=== PATIENT | male | born 1980 | race Caucasian/White ===

== ENCOUNTER 2020-02-13 15:29 | Inpatient (IN) | payer BC ==
[2020-02-13] MEDS ORDERED: ONDANSETRON HCL INJ/PF 4 MG/2 ML SDV IV ONE ×2 (15:52→19:54)
[2020-02-13] MEDS ORDERED: NORMAL SALINE 1000 ML 1,000 ML IV ONE ×2 (15:53→19:31)
--- NOTE | 2020-02-13 15:55 | ER Document Report ---
ED Medical Screen (RME) - General Chief Complaint: Abdominal Pain Stated Complaint: ABDOMINAL PAIN,CAN'T URINATE Time Seen by Provider: 02/13/20 15:50 Primary Care Provider: ROMY KOROMA MD [Primary Care Provider] - Follow up as needed - [facility] Notes: 02/13/20 15:53 39-year-old male to the emergency department with complaints of epigastric abdominal pain with nausea and vomiting that began last night is gotten significantly worse today. Abdominal pain radiates through to his back. He states that he has a history of pancreatitis and the last time he had it was about 8 years ago. He used to be a heavy drinker and had been sober until last April. Since April he has been drinking almost a pint a day. In April he unfortunately found his father . He states he stopped drinking about 2 days ago and was surprised to have his pain start yesterday. He denies any tremors or seizures. He is gone through alcohol withdrawal before but has never had a seizure with it. Denies any fevers but admits to chills. I performed a brief medical screening exam on the patient determined that the patient needs further evaluation and management by main side provider. I have placed initial orders to help expedite care. - Related Data Allergies/Adverse Reactions: hydromorphone HCl [From Dilaudid] Allergy (Severe, Verified 04/26/12 09:35) Hallucinations iodine [Iodine] Allergy (Severe, Verified 04/26/12 09:35) Hives Home Medications: BP meds Past Medical History - Social History Frequency of alcohol use: Heavy Drug Abuse: None - Past Medical History Cardiac Medical History: Denies: Hx Coronary Artery Disease, Hx Heart Attack, Hx Hypertension Pulmonary Medical History: Reports: Hx Pneumonia Denies: Hx Asthma, Hx Bronchitis, Hx COPD, Hx Tuberculosis Neurological Medical History: Denies: Hx Cerebrovascular Accident, Hx Seizures GI Medical History: Reports: Hx Pancreatitis Musculoskeltal Medical History: Denies Hx Arthritis Past Surgical History: Reports: Hx Herniorrhaphy. Denies: Hx Pacemaker - Immunizations Hx Diphtheria, Pertussis, Tetanus Vaccination: Yes Physical Exam - Vital signs Vitals: Temp Pulse Resp BP Pulse Ox 97.9 F 107 H 20 199/114 H 100 02/13/20 15:33 02/13/20 15:33 02/13/20 15:33 02/13/20 15:33 02/13/20 15:33 Course - Vital Signs Vital signs: Temp Pulse Resp BP Pulse Ox 97.9 F 107 H 20 199/114 H 100 02/13/20 15:33 02/13/20 15:33 02/13/20 15:33 02/13/20 15:33 02/13/20 15:33 Doctor's Discharge - Discharge Referrals: ROMY KOROMA MD [Primary Care Provider] - Follow up as needed
[2020-02-13 16:20] LABS: APPEARANCE,URINE CLEAR; BILIRUBIN,URINE NEGATIVE (NEGATIVE); COLOR,URINE YELLOW; GLUCOSE, URINE >=500 mg/dL (NEGATIVE); KETONES,URINE 80 mg/dL (NEGATIVE); LEUKOCYTE ESTERASE,URINE NEGATIVE (NEGATIVE); NITRITE,URINE NEGATIVE (NEGATIVE); PROTEIN,URINE 100 mg/dL (NEGATIVE); URINE SPECIFIC GRAVITY 1.048; UROBILINOGEN,URINE NEGATIVE mg/dL (<2.0)
[2020-02-13] MEDS ORDERED: MORPHINE SULFATE 10 MG/ML INJ IV ONE ×2 (16:28→19:55)
--- NOTE | 2020-02-13 16:29 | ER Document Report ---
ED General - General Chief Complaint: Abdominal Pain Stated Complaint: ABDOMINAL PAIN,CAN'T URINATE Time Seen by Provider: 02/13/20 15:50 Notes: 39-year-old male alcoholic presents with upper abdominal pain nausea vomiting for about 18 hours. History of pancreatitis and thinks it is the same. No fever chills. Pain is epigastric nonradiating associated with position changes associated with anorexia and vomiting. No anxiety withdrawal or seizure. History of ICU admission for what sounds like delirium which he says is due to Dilaudid. No diarrhea decreased urine output decreased oral intake. - Related Data Allergies/Adverse Reactions: hydromorphone HCl [From Dilaudid] Allergy (Severe, Verified 04/26/12 09:35) Hallucinations iodine [Iodine] Allergy (Severe, Verified 04/26/12 09:35) Hives Home Medications: BP meds Past Medical History - General Information source: Patient - Social History Smoking Status: Never Smoker Frequency of alcohol use: Heavy Drug Abuse: None Family History: None - Past Medical History Cardiac Medical History: Denies: Hx Coronary Artery Disease, Hx Heart Attack, Hx Hypertension Pulmonary Medical History: Reports: Hx Pneumonia Denies: Hx Asthma, Hx Bronchitis, Hx COPD, Hx Tuberculosis Neurological Medical History: Denies: Hx Cerebrovascular Accident, Hx Seizures GI Medical History: Reports: Hx Pancreatitis Musculoskeletal Medical History: Denies Hx Arthritis Past Surgical History: Reports: Hx Herniorrhaphy. Denies: Hx Pacemaker - Immunizations Hx Diphtheria, Pertussis, Tetanus Vaccination: Yes Review of Systems - Review of Systems Notes: REVIEW OF SYSTEMS GEN: Denies fever, chills, weight loss ENT: Denies sore throat, nasal discharge, ear pain EYES: Denies blurry vision, eye pain, discharge CV: Denies chest pain, palpitations, edema RESP: Denies cough, shortness of breath, wheezing GI: See HPI MSK: Denies joint pain/swelling, edema, SKIN: Denies rash, skin lesions LYMPH: Denies swollen glands/lymph nodes NEURO: Denies headache, focal weakness or numbness, dizziness PSYCH: Denies depression, suicidal or homicidal ideation PHYSICAL EXAMINATION General: No acute distress, well-nourished Head: Atraumatic, normocephalic ENT: Mouth normal, oropharynx moist, no exudates or tonsillar enlargement Eyes: Conjunctiva normal, pupils equal, lids normal Neck: No JVD, supple, no guarding CVS: Normal rate, regular rhythm, no murmurs Resp: No resp distress, equal and normal breath sounds bilaterally GI: Abdominal tenderness without rebound or guarding Ext: No deformities, no edema, normal range of motion in upper and lower ext Back: No CVA or midline TTP Skin: No rash, warm Lymphatic: No lymphadeopathy noted Neuro: Tremor Physical Exam - Vital signs Vitals: Temp Pulse Resp BP Pulse Ox 97.9 F 107 H 20 199/114 H 100 02/13/20 15:33 02/13/20 15:33 02/13/20 15:33 02/13/20 15:33 02/13/20 15:33 Course - Re-evaluation Re-evalutation: 02/13/20 23:08 Abdominal pain history pancreatitis and alcoholism Mild withdrawal versus pain Not likely gallstone related. Labs show elevated lipase isolated, hemoconc entration with elevated hemoglobin Given 2 L of fluid 2 rounds of large dose morphine and still miserable Discussed with Edna for admission. Doubt gallstone pancreatitis. - Vital Signs Vital signs: Temp Pulse Resp BP Pulse Ox 98.4 F 94 26 H 188/108 H 100 02/13/20 20:07 02/13/20 20:07 02/13/20 20:07 02/13/20 20:07 02/13/20 20:07 - Laboratory Result Diagrams: 02/13/20 17:22 02/13/20 17:22 Laboratory results interpreted by me: 02/13/20 02/13/20 02/13/20 16:00 17:22 17:22 RBC 5.72 H Hgb 18.9 H Hct 53.9 H Lymph % (Auto) 5.4 L Absolute Neuts (auto) 8.8 H Seg Neutrophils % 86.1 H Potassium 5.5 H Chloride 95 L Glucose 201 H Calcium 11.3 H Total Bilirubin 1.6 H ALT 110 H Lipase 4365.8 H Urine Protein 100 H Urine Glucose (UA) >=500 H Urine Ketones 80 H Discharge - Discharge Clinical Impression: Acute pancreatitis Qualifiers: Pancreatitis type: alcohol induced Acute pancreatitis complication: unspecified Qualified Code(s): K85.20 - Alcohol induced acute pancreatitis without necrosis or infection Condition: Good Disposition: ADMITTED INPATIENT Admitting Provider: Leanna (Hospitalist) Unit Admitted: Medical Floor
[2020-02-13 17:40] LABS: ABSOLUTE LYMPHOCYTES (AUTO) 0.5 10^3/uL (0.5-4.7); ABSOLUTE MONOCYTES (AUTO) 0.8 10^3/uL (0.1-1.4); ABSOLUTE NEUT (AUTO) 8.8 10^3/uL (1.7-8.2); BASOPHILS % (AUTO) 0.2 % (0-2); EOSINOPHILS % (AUTO) 0.1 % (0-6); HEMATOCRIT 53.9 % (37.9-51.0); HEMOGLOBIN 18.9 g/dL (13.5-17.0); LYMPHOCYTES % (AUTO) 5.4 % (13-45); MEAN CORPUSCULAR VOLUME 94 fl (80-97); MONOCYTES % (AUTO) 8.2 % (3-13); PLATELET COUNT 207 10^3/uL (150-450); RED BLOOD COUNT 5.72 10^6/uL (4.35-5.55); RED CELL DISTRIBUTION WIDTH 13.7 % (11.5-14.0); SEGMENTED NEUTROPHILS % (AUTO) 86.1 % (42-78); TOTAL CELLS COUNTED % (AUTO) 100 %; WHITE BLOOD COUNT 10.2 10^3/uL (4.0-10.5)
[2020-02-13 18:12] LABS: ALBUMIN 4.8 g/dL (3.5-5.0); ALKALINE PHOSPHATASE 85 U/L (38-126); ANION GAP 17 (5-19); ASPARTATE AMINO TRANSFERASE 50 U/L (17-59); BILIRUBIN,DIRECT 0.4 mg/dL (0.0-0.4); BILIRUBIN,TOTAL 1.6 mg/dL (0.2-1.3); BLOOD UREA NITROGEN 14 mg/dL (7-20); CALCIUM 11.3 mg/dL (8.4-10.2); CARBON DIOXIDE 25 mmol/L (22-30); CHLORIDE 95 mmol/L (98-107); GLUCOSE 201 mg/dL (75-110); POTASSIUM 5.5 mmol/L (3.6-5.0)
[2020-02-13] MEDS ORDERED: ONDANSETRON HCL INJ/PF 4 MG/2 ML SDV IV PRN (20:18)
[2020-02-13] MEDS ORDERED: MAG HYDROX/AL HYDROX/SIMETH SUSP 30 ML UDCUP PO PRN (20:18)
[2020-02-13] MEDS ORDERED: MAGNESIUM HYDROXIDE SUSP 30 ML UDCUP PO PRN (20:18)
[2020-02-13] MEDS ORDERED: HYDRALAZINE HCL INJ/PF 20 MG/1 ML SDV IV PRN (20:24)
[2020-02-13] MEDS ORDERED: MORPHINE SULFATE 10 MG/ML INJ IV PRN ×3 (20:24→20:47)
[2020-02-13] MEDS ORDERED: ACETAMINOPHEN 650 MG SUPP.RECT PR PRN (20:24)
[2020-02-13] MEDS ORDERED: METOPROLOL TARTRATE PF/INJ 5 MG/5 ML SDV IV PRN (20:24)
[2020-02-13] MEDS ORDERED: PROMETHAZINE HCL INJ 25 MG/1 ML VIAL IV PRN (20:24)
[2020-02-13] MEDS ORDERED: DIAZEPAM INJ 10 MG/2 ML DISP.SYRIN IV PRN (20:24)
[2020-02-13] MEDS ORDERED: LORAZEPAM INJ 2 MG/1 ML VIAL IV PRN (20:24)
[2020-02-13] MEDS ORDERED: DEXTROSE 40% GEL 15 GM TUBE PO PRN ×2 (20:28)
[2020-02-13] MEDS ORDERED: GLUCAGON,HUMAN RECOMB 1 MG INJ IM PRN (20:28)
[2020-02-13] MEDS ORDERED: DEXTROSE 50%-WATER 25 GM/50 ML DISP.SYRIN IV PRN ×2 (20:28)
--- NOTE | 2020-02-13 21:17 | PDOC H&P ---
History of Present Illness Admission Date/PCP: 02/13/2020 19:52 ROMY KOROMA MD Patient complains of: Abdominal pain History of Present Illness: ROMY DIANA is a 39 year old male who presented to the emergency room with a 1 day history of abdominal pain. He admits the sudden onset and gradual worsening of constant epigastric gripping abdominal pain with radiation through to his back over the course of the last 24 hours. His pain is now severe and is similar to pain he has had in the past with episodes of alcoholic pancreatitis. His pain has been accompanied by nausea with vomiting and anorexia. His pain has been associated with decreased urine output and intermittent chills without fever. He admits drinking 1 pint of hard liquor per day, for the last 9 months, up until 02/10/2020. He denies identification of any aggravating or ameliorating factors for his abdominal pain. In the emergency room he was found to have an elevated serum lipase, an elevated glucose and poorly controlled hypertension. He was treated in the emergency room with morphine, IV fluids and subsequently was admitted to the hospital for further evaluation and treatment. Past Medical History Cardiac Medical History: Denies: Coronary Artery Disease, Myocardial Infarction, Hypertension Pulmonary Medical History: Reports: Pneumonia Denies: Asthma, Bronchitis, Chronic Obstructive Pulmonary Disease (COPD), Tuberculosis EENT Medical History: Denies: Cataracts, Ears - Hearing aids Neurological Medical History: Denies: Hemorrhagic CVA, Ischemic CVA, Seizures Endocrine Medical History: Reports: Diabetes Mellitus Type 2 Denies: Diabetes Mellitus Type 1, Hyperthyroidism, Hypothyroidism Renal/ Medical History: Denies: Chronic Kidney Disease, Nephrolithiasis Malignancy Medical History: Reports: None GI Medical History: Reports: Other - Alcoholic pancreatitis Denies: Cirrhosis, Hepatitis, Peptic Ulcer Disease Musculoskeltal Medical History: Reports: Arthritis - Tennis elbow Denies: Gout Skin Medical History: Denies: Eczema, Psoriasis Psychiatric Medical History: Reports: Alcohol Dependency Denies: Substance Abuse, Tobacco Dependency Traumatic Medical History: Reports: None Hematology: Denies: Anemia, Bleeding Tendencies Infectious Medical History: Reports: None Past Surgical History Past Surgical History: Reports: Herniorrhaphy Social History Information Source: Patient Lives with: Spouse/Significant other Smoking Status: Never Smoker Electronic Cigarette use?: No Frequency of Alcohol Use: Heavy - 1 pint of hard liquor per day Hx Recreational Drug Use: No Drugs: None Hx Prescription Drug Abuse: No - Advance Directive Resuscitation Status: Full Code Surrogate healthcare decision maker:: Betsy Diana Family History Family History: CAD - Congestive heart failure, Malignancy, Other - Myasthenia gravis Parental Family History Reviewed: Yes Children Family History Reviewed: No Sibling(s) Family History Reviewed.: Yes Medication/Allergy Home Medications: No Home Medications 1 12/24/11 Oxycodone HCl/Acetaminophen [Percocet 5-325 mg Tablet] 1 - 2 tab PO ASDIR PRN 05/03/12 Promethazine HCl [Phenergan 25 mg Tablet] 25 mg PO 05/03/12 Allergies/Adverse Reactions: hydromorphone HCl [From Dilaudid] Allergy (Severe, Verified 04/26/12 09:35) Hallucinations iodine [Iodine] Allergy (Severe, Verified 04/26/12 09:35) Hives Review of Systems Constitutional: PRESENT: as per HPI, anorexia, chills. ABSENT: fever(s) Eyes: ABSENT: visual disturbances, other - Eye pain Ears: ABSENT: hearing changes, other - Ear pain Nose, Mouth, and Throat: ABSENT: headache(s), sore throat Cardiovascular: ABSENT: chest pain, palpitations Respiratory: ABSENT: cough, dyspnea Gastrointestinal: PRESENT: as per HPI, abdominal pain, nausea, vomiting. ABSENT: constipation, diarrhea, hematemesis Genitourinary: PRESENT: as per HPI, other - Decreased urine output. ABSENT: dysuria, hematuria Musculoskeletal: ABSENT: joint swelling, muscle weakness Integumentary: ABSENT: pruritus, rash Neurological: ABSENT: confusion, convulsions, focal weakness, memory loss, syncope, tremor(s) Psychiatric: ABSENT: anxiety, depression Endocrine: ABSENT: cold intolerance, heat intolerance Hematologic/Lymphatic: ABSENT: easy bleeding, easy bruising Allergic/Immunologic: ABSENT: seasonal rhinorrhea Physical Exam Vital Signs: Temp Pulse Resp BP Pulse Ox 97.9 F 107 H 20 199/114 H 100 02/13/20 15:33 02/13/20 15:33 02/13/20 15:33 02/13/20 15:33 02/13/20 15:33 Intake & Output 02/11/20 02/12/20 02/13/20 23:59 23:59 23:59 Intake Total 1000 Balance 1000 Weight 97.9 kg General appearance: PRESENT: cooperative, severe distress - Secondary to abdominal pain Head exam: PRESENT: atraumatic, normocephalic Eye exam: PRESENT: conjunctiva pink. ABSENT: conjunctival injection, scleral icterus Ear exam: PRESENT: normal external ear exam. ABSENT: bleeding, drainage Mouth exam: PRESENT: dry mucosa, neck supple Neck exam: ABSENT: thyromegaly, tracheal deviation Respiratory exam: PRESENT: clear to auscultation rachel, symmetrical, unlabored Cardiovascular exam: PRESENT: RRR. ABSENT: clicks, gallop, rubs Pulses: PRESENT: normal radial pulses, normal dorsalis pedis pul Vascular exam: PRESENT: normal capillary refill. ABSENT: pallor GI/Abdominal exam: PRESENT: hypoactive bowel sounds, soft, tenderness - Severe epigastric tenderness to palpation Rectal exam: PRESENT: deferred Extremities exam: ABSENT: joint swelling, pedal edema Musculoskeletal exam: ABSENT: deformity, dislocation Neurological exam: PRESENT: alert, oriented to person, oriented to place, oriented to time, oriented to situation, CN II-XII grossly intact. ABSENT: de r sensory deficit Psychiatric exam: PRESENT: appropriate affect, normal mood Skin exam: PRESENT: dry, intact, warm. ABSENT: jaundice, rash, urticaria Results Laboratory Results: 02/13/20 17:22 02/13/20 17:22 02/13/20 02/13/20 02/13/20 16:00 17:22 17:22 WBC 10.2 RBC 5.72 H Hgb 18.9 H Hct 53.9 H MCV 94 MCH 33.0 MCHC 35.0 RDW 13.7 Plt Count 207 Seg Neutrophils % 86.1 H Sodium 137.2 Potassium 5.5 H Chloride 95 L Carbon Dioxide 25 Anion Gap 17 BUN 14 Creatinine 0.97 Est GFR ( Amer) > 60 Glucose 201 H Calcium 11.3 H Total Bilirubin 1.6 H AST 50 Alkaline Phosphatase 85 Total Protein 8.0 Albumin 4.8 Lipase 4365.8 H Urine Color YELLOW Urine Appearance CLEAR Urine pH 6.0 Ur Specific [place] 1.048 Urine Protein 100 H Urine Glucose (UA) >=500 H Urine Ketones 80 H Urine Blood NEGATIVE Urine Nitrite NEGATIVE Ur Leukocyte Esterase NEGATIVE Urine WBC (Auto) 1 Urine RBC (Auto) 1 Assessment and Plan - Diagnosis (1) Acute alcoholic pancreatitis Qualifiers: Acute pancreatitis complication: unspecified Qualified Code(s): K85.20 - Alcohol induced acute pancreatitis without necrosis or infection Is this a current diagnosis for this admission?: Yes (2) Hypertension Qualifiers: Hypertension type: unspecified Qualified Code(s): I10 - Essential (primary) hypertension Is this a current diagnosis for this admission?: Yes (3) Abdominal pain Qualifiers: Abdominal location: epigastric Qualified Code(s): R10.13 - Epigastric pain Is this a current diagnosis for this admission?: Yes (4) Alcohol use disorder, severe, in early remission Is this a current diagnosis for this admission?: Yes (5) Alcohol withdrawal without perceptual disturbances Qualifiers: Complication of substance-induced condition: uncomplicated Qualified Code(s): F10.230 - Alcohol dependence with withdrawal, uncomplicated Is this a current diagnosis for this admission?: Yes (6) Diabetes mellitus type 2 in nonobese Is this a current diagnosis for this admission?: Yes - Plan Summary Summary: Patient will be admitted to the medical floor where he received routine supportive and symptomatic cares. He will be treated with IV fluids using lactated Ringer solution at 167 mL/h. He will receive morphine sulfate 5 to 10 mg IV every 2 hours as needed for pain. He will receive Ativan 1 mg IV every 4 hours as needed for anxiety or restlessness. His blood pressure will be contr olled with IV hydralazine and/or metoprolol to maintain a systolic blood pressure less than 160 and a diastolic blood pressure less than 100. A noncontrast CT scan of the abdomen pelvis will be obtained. A hemoglobin A1c will be obtained. CBCs, metabolic profiles and additional laboratory and/or radiographic evaluations will be obtained as appropriate. Patient will initially be on a clear liquid diet as tolerated. Every 6 hours Accu-Cheks will be obtained with sliding scale insulin for hyperglycemia and a hypoglycemic protocol in place. - Time Time Spent with patient: 15-24 minutes Medications reviewed and adjusted accordingly: Yes Anticipated Discharge Disposition: Home, Self Care Anticipated Discharge Timeframe: Undetermined - Inpatient Certification Based on my medical assessment, after consideration of the patient's comorbidities, presenting symptoms, or acuity I expect that the services needed warrant INPATIENT care.: Yes I certify that my determination is in accordance with my understanding of Medicare's requirements for reasonable and necessary INPATIENT services [42 CFR 412.3e].: Yes Medical Necessity: Need Close Monitoring Due to Risk of Patient Decompensation, Need For IV Fluids, Need for Pain Control, Risk of Complication if Not Cared For in Hospital
[2020-02-13] MEDS: FAMOTIDINE INJ/PF 20 MG/2 ML SDV IV SCH (21:34)
[2020-02-13] MEDS: RINGERS SOLUTION,LACTATED 1,000 ML IV PRN (21:40)
[2020-02-13] MEDS: HEPARIN SOD (PORCINE) 5,000 UNIT/ML 1 ML VIAL SUBCUT SCH (21:40)
[2020-02-13] MEDS: MORPHINE SULFATE 10 MG/ML INJ IV PRN (23:44)
[2020-02-14] MEDS: INSULIN LISPRO 100 UNIT/ML 3 ML VIAL SUBCUT SCH ×4 (01:18→18:47)
[2020-02-14] MEDS: MORPHINE SULFATE 10 MG/ML INJ IV PRN ×7 (01:50→21:08)
[2020-02-14] MEDS: RINGERS SOLUTION,LACTATED 1,000 ML IV PRN ×2 (03:53→09:53)
[2020-02-14 05:26] LABS: HEMATOCRIT 53.9 % (37.9-51.0); HEMOGLOBIN 18.6 g/dL (13.5-17.0); MEAN CORPUSCULAR HGB CONC 34.5 g/dL (32.0-36.0); MEAN CORPUSCULAR VOLUME 96 fl (80-97); PLATELET COUNT 188 10^3/uL (150-450); RED BLOOD COUNT 5.63 10^6/uL (4.35-5.55); RED CELL DISTRIBUTION WIDTH 13.6 % (11.5-14.0); WHITE BLOOD COUNT 13.2 10^3/uL (4.0-10.5)
[2020-02-14 06:01] LABS: ANION GAP 14 (5-19); BLOOD UREA NITROGEN 11 mg/dL (7-20); CALCIUM 9.1 mg/dL (8.4-10.2); CARBON DIOXIDE 23 mmol/L (22-30); CHLORIDE 98 mmol/L (98-107); CHOLESTEROL 220.82 mg/dL (0-200); GLUCOSE 184 mg/dL (75-110); POTASSIUM 5.4 mmol/L (3.6-5.0); TRIGLYCERIDES 254 mg/dL (<150)
[2020-02-14] MEDS: HEPARIN SOD (PORCINE) 5,000 UNIT/ML 1 ML VIAL SUBCUT SCH (06:11)
[2020-02-14 06:12] LABS: DIRECT LDL 144 mg/dL (<100)
[2020-02-14 06:15] LABS: VLDL CHOLESTEROL 50.8 mg/dL (10-31)
[2020-02-14 06:17] LABS: FREE T3 4.08 pg/mL (2.77-5.27)
[2020-02-14 06:31] LABS: THYROID STIMULATING HORMONE 0.95 uIU/mL (0.47-4.68)
[2020-02-14] MEDS ORDERED: LORAZEPAM INJ 2 MG/1 ML VIAL IV PRN ×3 (08:57→09:00)
[2020-02-14] MEDS ORDERED: ONDANSETRON HCL INJ/PF 4 MG/2 ML SDV IV PRN (09:30)
[2020-02-14] MEDS: DOCUSATE SODIUM 100 MG CAPSULE PO SCH ×2 (09:54→19:33)
[2020-02-14] MEDS: FAMOTIDINE INJ/PF 20 MG/2 ML SDV IV SCH ×2 (09:54→21:08)
[2020-02-14] MEDS ORDERED: DIAZEPAM INJ 10 MG/2 ML DISP.SYRIN IV SCH (10:00)
[2020-02-14] MEDS ORDERED: HEPARIN SOD (PORCINE) 5,000 UNIT/ML 1 ML VIAL SUBCUT SCH (10:00)
[2020-02-14] MEDS ORDERED: DOCUSATE SODIUM 100 MG/10 ML UDC PO SCH (10:00)
--- NOTE | 2020-02-14 10:07 | RADIOLOGY REPORT (SQ) ---
EXAM DESCRIPTION: CT ABD/PELVIS NO ORAL OR IV IMAGES COMPLETED DATE/TIME: 02/14/2020 7:38 am REASON FOR STUDY: Acute alcoholic pancreatitis COMPARISON: None. TECHNIQUE: CT scan of the abdomen and pelvis performed without intravenous or oral contrast. Images reviewed with lung, soft tissue, and bone windows. Reconstructed coronal and sagittal MPR images revi ewed. All images stored on PACS. All CT scanners at this facility use dose modulation, iterative reconstruction, and/or weight based d osing when appropriate to reduce radiation dose to as low as reasonably achievable (ALARA). [facility]: Dose Right [facility]: CareDose [facility]: Dose Right [facility]: Teradose 4D [facility]: [employer] RADIATION DOSE: CT Rad equipment meets quality standard of care and radiation dose reduction techniq ues were employed. CTDIvol: 11.1 mGy. DLP: 678 mGy-cm.mGy. LIMITATIONS: None. FINDINGS: LOWER CHEST: No significant findings. No nodules or infiltrates. NON-CONTRASTED LIVER, SPLEEN, ADRENALS: Hepatic steatosis. PANCREAS: Inflammatory changes in the peripancreatic fat consistent with clinical history. Calcifica tions in the pancreatic tail. No pseudocyst. No obvious pancreatic mass. Pancreatic duct is not di lated. GALLBLADDER: No identified stones by CT criteria. No inflammatory changes to suggest cholecystitis. RIGHT KIDNEY AND URETER: No suspicious masses. Assessment limited by lack of IV contrast. No signif icant calcifications. No hydronephrosis or hydroureter. LEFT KIDNEY AND URETER: No suspicious masses. Assessment limited by lack of IV contrast. No signifi cant calcifications. No hydronephrosis or hydroureter. AORTA AND RETROPERITONEUM: No aneurysm. No retroperitoneal masses or adenopathy. BOWEL AND PERITONEAL CAVITY: See above. Diverticulosis descending and sigmoid colon. APPENDIX: Normal. PELVIS, BLADDER, AND ABDOMINAL WALL:Small amount of free fluid. Clips in the left lower quadrant and groin. BONES: No significant findings. OTHER: No other significant finding. IMPRESSION: 1. Acute pancreatitis. 2. Hepatic steatosis. 3. Diverticulosis. COMMENT: Quality ID # [id number]: Final reports with documentation of one or more dose reduction techniques (e.g., Automated exposure control, adjustment of the mA and/or kV according to patient size, use of iterative reconstruction technique) TECHNICAL DOCUMENTATION: JOB ID: [id number] [employer]- All Rights Reserved Reading location - IP/workstation name: [email or web address]
[2020-02-14] MEDS ORDERED: SODIUM POLYSTYRENE SULFONATE 15 GM/60 ML PO ONE (11:47)
--- NOTE | 2020-02-14 12:00 | PDOC PROGRESS REPORT ---
Subjective Progress Note for:: 02/14/20 Subjective:: Patient still having abdominal pain. States he was able to tolerate a little bit of his breakfast this morning. Currently on clear liquid diet. States he had pancreatitis several years back which was also due to alcoholism. However his pancreatitis has been stable since then but relapsed back into drinking alcohol in heavy amounts since April last year after his father passed. Reason For Visit: ACUTE ALCOHOLIC PANCRETITIS,UNCONTROLLED Physical Exam Vital Signs: Temp Pulse Resp BP Pulse Ox 98.3 F 136 H 20 155/106 H 99 02/14/20 08:04 02/14/20 07:58 02/14/20 07:58 02/14/20 07:58 02/14/20 07:58 Intake & Output 02/13/20 02/14/20 02/15/20 06:59 06:59 06:59 Intake Total 2240 1300 Balance 2240 1300 Weight 103.2 kg General appearance: PRESENT: no acute distress, cooperative Neck exam: ABSENT: JVD Respiratory exam: PRESENT: clear to auscultation rachel, symmetrical, unlabored. ABSENT: tachypnea, wheezes Cardiovascular exam: PRESENT: RRR, +S1, +S2. ABSENT: tachycardia GI/Abdominal exam: PRESENT: soft, tenderness. ABSENT: distended, firm, guarding, hypoactive bowel sounds, rebound, rigid Neurological exam: PRESENT: alert, awake, oriented to person, oriented to place, oriented to time, other - Non-tremulous Results Laboratory Results: 02/14/20 05:12 02/14/20 05:12 02/13/20 02/13/20 02/13/20 16:00 17:22 17:22 WBC 10.2 RBC 5.72 H Hgb 18.9 H Hct 53.9 H MCV 94 MCH 33.0 MCHC 35.0 RDW 13.7 Plt Count 207 Seg Neutrophils % 86.1 H Sodium 137.2 Potassium 5.5 H Chloride 95 L Carbon Dioxide 25 Anion Gap 17 BUN 14 Creatinine 0.97 Est GFR ( Amer) > 60 Glucose 201 H Calcium 11.3 H Magnesium Total Bilirubin 1.6 H AST 50 Alkaline Phosphatase 85 Total Protein 8.0 Albumin 4.8 Triglycerides Cholesterol LDL Cholesterol Direct VLDL Cholesterol HDL Cholesterol Lipase 4365.8 H TSH Free T3 pg/mL Urine Color YELLOW Urine Appearance CLEAR Urine pH 6.0 Ur Specific [place] 1.048 Urine Protein 100 H Urine Glucose (UA) >=500 H Urine Ketones 80 H Urine Blood NEGATIVE Urine Nitrite NEGATIVE Ur Leukocyte Esterase NEGATIVE Urine WBC (Auto) 1 Urine RBC (Auto) 1 02/14/20 02/14/20 02/14/20 05:12 05:12 05:12 WBC 13.2 H RBC 5.63 H Hgb 18.6 H Hct 53.9 H MCV 96 MCH 33.0 MCHC 34.5 RDW 13.6 Plt Count 188 Seg Neutrophils % Sodium 134.6 L Potassium 5.4 H Chloride 98 Carbon Dioxide 23 Anion Gap 14 BUN 11 Creatinine 0.90 Est GFR ( Amer) > 60 Glucose 184 H Calcium 9.1 Magnesium 2.2 Total Bilirubin AST Alkaline Phosphatase Total Protein Albumin Triglycerides 254 H Cholesterol 220.82 H LDL Cholesterol Direct 144 H VLDL Cholesterol 50.8 H HDL Cholesterol 47 Lipase TSH 0.95 Free T3 pg/mL 4.08 Urine Color Urine Appearance Urine pH Ur Specific [place] Urine Protein Urine Glucose (UA) Urine Ketones Urine Blood Urine Nitrite Ur Leukocyte Esterase Urine WBC (Auto) Urine RBC (Auto) Impressions: Abdomen/Pelvis CT 02/14/20 07:30 IMPRESSION: 1. Acute pancreatitis. 2. Hepatic steatosis. 3. Diverticulosis. Assessment and Plan - Diagnosis (1) Acute alcoholic pancreatitis Qualifiers: Acute pancreatitis complication: unspecified Qualified Code(s): K85.20 - Alcohol induced acute pancreatitis without necrosis or infection Is this a current diagnosis for this admission?: Yes Plan: Abdominal pain is typical, lipase elevation and CT abdomen pelvis showing findings suggestive of acute pancreatitis. Alcohol cessation counseling performed. Pain control with IV morphine Aggressive IV hydration Currently on clear liquid diet-we will advance as tolerated. (2) Alcohol use disorder Is this a current diagnosis for this admission?: Yes Plan: Very heavy alcohol abuse. Drinks 1 pint a day of liquor. Last drink was on Thursday. Denies history of withdrawal seizure. Will monitor very closely for withdrawal with CIWA every 4 hours. IV Ativan will be administered as needed based on CIWA scores. Standing dose of Valium which will be down titrated as tolerated. (3) Hyperkalemia Is this a current diagnosis for this admission?: Yes Plan: After evaluation of chart and discussion with patient, only notable culprit is olmesartan which he takes at home. Seems to be minimally improved this morning. We will continue to hold ARB and recheck BMP at 4 PM today. If still notably hyperkalemic, will give Kayexalate. (4) Diabetes mellitus type 2 in nonobese Is this a current diagnosis for this admission?: Yes Plan: Continue metformin. Sliding scale insulin. Accu-Cheks (5) Hypertension Qualifiers: Hypertension type: unspecified Qualified Code(s): I10 - Essential (primary) hypertension Is this a current diagnosis for this admission?: Yes Plan: Holding ARB due to hyperkalemia. Substitute with amlodipine. (6) Hepatic steatosis Is this a current diagnosis for this admission?: Yes Plan: Likely secondary to alcoholic fatty liver disease. Either way he is on metformin given his diabetes which should help with fatty liver. Ultimately alcohol abstinence is the goal. - Plan Summary Summary: \ - Time Time Spent with patient: 15-24 minutes Anticipated Discharge Disposition: Home, Self Care Anticipated Discharge Timeframe: within 72 hours
[2020-02-14] MEDS: ENOXAPARIN SODIUM INJ 40 MG/0.4 ML DISP.SYRIN SUBCUT SCH (13:43)
[2020-02-14] MEDS: AMLODIPINE BESYLATE 5 MG TABLET PO SCH ×2 (13:59→21:08)
[2020-02-14] MEDS: NORMAL SALINE 1000 ML 1,000 ML IV PRN (16:11)
[2020-02-14] MEDS: METFORMIN HCL 500 MG TABLET PO SCH (16:48)
[2020-02-14 18:32] LABS: ANION GAP 12 (5-19); BLOOD UREA NITROGEN 12 mg/dL (7-20); CALCIUM 8.7 mg/dL (8.4-10.2); CARBON DIOXIDE 23 mmol/L (22-30); CHLORIDE 95 mmol/L (98-107); GLUCOSE 174 mg/dL (75-110); POTASSIUM 4.7 mmol/L (3.6-5.0)
[2020-02-14] MEDS: DIAZEPAM 5 MG TABLET PO SCH (21:08)
[2020-02-15] MEDS: INSULIN LISPRO 100 UNIT/ML 3 ML VIAL SUBCUT SCH ×5 (00:18→23:56)
[2020-02-15] MEDS: NORMAL SALINE 1000 ML 1,000 ML IV PRN ×3 (01:08→21:23)
[2020-02-15] MEDS: MORPHINE SULFATE 10 MG/ML INJ IV PRN ×5 (01:08→23:47)
[2020-02-15] MEDS ORDERED: METOPROLOL TARTRATE PF/INJ 5 MG/5 ML SDV IV ONE ×2 (01:22→01:30)
[2020-02-15] MEDS ORDERED: METOPROLOL TARTRATE PF/INJ 5 MG/5 ML SDV IV PRN (01:39)
[2020-02-15 06:43] LABS: HEMATOCRIT 51.8 % (37.9-51.0); HEMOGLOBIN 17.5 g/dL (13.5-17.0); MEAN CORPUSCULAR HEMOGLOBIN 32.4 pg (27.0-33.4); MEAN CORPUSCULAR HGB CONC 33.8 g/dL (32.0-36.0); MEAN CORPUSCULAR VOLUME 96 fl (80-97); PLATELET COUNT 126 10^3/uL (150-450); RED BLOOD COUNT 5.39 10^6/uL (4.35-5.55); RED CELL DISTRIBUTION WIDTH 13.4 % (11.5-14.0); WHITE BLOOD COUNT 14.1 10^3/uL (4.0-10.5)
[2020-02-15 07:04] LABS: ANION GAP 14 (5-19); BLOOD UREA NITROGEN 12 mg/dL (7-20); CALCIUM 8.1 mg/dL (8.4-10.2); CARBON DIOXIDE 19 mmol/L (22-30); CHLORIDE 96 mmol/L (98-107); GLUCOSE 153 mg/dL (75-110); POTASSIUM 4.7 mmol/L (3.6-5.0)
[2020-02-15] MEDS: METFORMIN HCL 500 MG TABLET PO SCH ×2 (07:51→17:37)
--- NOTE | 2020-02-15 09:10 | RADIOLOGY REPORT (SQ) ---
EXAM DESCRIPTION: CHEST 2 VIEWS IMAGES COMPLETED DATE/TIME: 02/15/2020 8:46 am REASON FOR STUDY: leukocytosis. ? occult infection COMPARISON: AP view of the chest from 03/04/[address] of the abdomen and pelvis from 02/14/2020. EXAM PARAMETERS: NUMBER OF VIEWS: Two views. TECHNIQUE: PA and lateral views of the chest were obtained. RADIATION DOSE: NA LIMITATIONS: None. FINDINGS: LUNGS AND PLEURA: Patchy bibasilar opacities that could represent atelectasis. On the lat eral view the posterior costophrenic sulci are blunted. There is no pneumothorax. MEDIASTINUM AND HILAR STRUCTURES: No mediastinal or hilar contour abnormality. HEART AND VASCULAR STRUCTURES: The cardiac silhouette and pulmonary vasculature are within normal frank its. BONES: No acute findings. HARDWARE: None in the chest. OTHER: No other finding. IMPRESSION: Findings as detailed above likely represent a combination of small bilateral pleural eff usions and atelectasis. TECHNICAL DOCUMENTATION: JOB ID: [id number] 2010 [employer]- All Rights Reserved Reading location - IP/workstation name: [email or web address]
[2020-02-15] MEDS: AMLODIPINE BESYLATE 5 MG TABLET PO SCH ×2 (09:33→21:19)
[2020-02-15] MEDS: FAMOTIDINE INJ/PF 20 MG/2 ML SDV IV SCH ×2 (09:34→21:19)
[2020-02-15] MEDS: DIAZEPAM 5 MG TABLET PO SCH ×2 (09:34→17:37)
[2020-02-15] MEDS: DOCUSATE SODIUM 100 MG CAPSULE PO SCH ×2 (09:37→17:36)
[2020-02-15] MEDS: ENOXAPARIN SODIUM INJ 40 MG/0.4 ML DISP.SYRIN SUBCUT SCH (09:37)
--- NOTE | 2020-02-15 09:39 | EKG REPORT ---
SEVERITY:- ABNORMAL ECG - SINUS TACHYCARDIA PROBABLE LEFT ATRIAL ABNORMALITY BORDERLINE LEFT AXIS DEVIATION BORDERLINE T ABNORMALITIES, INFERIOR LEADS : Confirmed by: Carson Vieyra MD 15-Feb-2020 09:38:03
--- NOTE | 2020-02-15 09:39 | EKG REPORT ---
SEVERITY:- ABNORMAL ECG - SINUS TACHYCARDIA PROBABLE INFERIOR INFARCT, OLD : Confirmed by: Carson Vieyra MD 15-Feb-2020 09:37:53
[2020-02-15 09:41] LABS: INTERNATIONAL RATION (INR) 1.17; PROTHROMBIN TIME 15.1 SEC (11.4-15.4)
[2020-02-15 09:42] LABS: PARTIAL THROMBOPLASTIN TIME 29.1 SEC (23.5-35.8)
[2020-02-15] MEDS ORDERED: LORAZEPAM 1 MG TABLET PO PRN (10:48)
--- NOTE | 2020-02-15 17:17 | PDOC PROGRESS REPORT ---
Subjective Progress Note for:: 02/15/20 Subjective:: Patient states that his abdominal pain feels better and will like for diet escalated. States that he has history of anxiety and was on lexapro which he stopped a month ago because it made him feel "loopy". Reason For Visit: ACUTE ALCOHOLIC PANCRETITIS,UNCONTROLLED Physical Exam Vital Signs: Temp Pulse Resp BP Pulse Ox 98.7 F 136 H 18 136/90 H 97 02/15/20 14:06 02/15/20 14:06 02/15/20 14:06 02/15/20 14:06 02/15/20 14:06 Intake & Output 02/14/20 02/15/20 02/16/20 06:59 06:59 06:59 Intake Total 2240 3845 1000 Balance 2240 3845 1000 Weight 103.2 kg 105.6 kg General appearance: PRESENT: no acute distress, cooperative Neck exam: ABSENT: JVD Respiratory exam: PRESENT: clear to auscultation rachel, symmetrical, unlabored. ABSENT: tachypnea Cardiovascular exam: PRESENT: +S1, +S2, tachycardia. ABSENT: irregular rhythm GI/Abdominal exam: PRESENT: soft. ABSENT: distended, firm, guarding, rebound, rigid, tenderness Neurological exam: PRESENT: alert, awake, oriented to person, oriented to place, oriented to time Psychiatric exam: ABSENT: anxious Skin exam: PRESENT: other - flushed Results Laboratory Results: 02/15/20 06:12 02/15/20 06:12 02/14/20 02/15/20 02/15/20 17:47 06:12 06:12 WBC 14.1 H RBC 5.39 Hgb 17.5 H Hct 51.8 H MCV 96 MCH 32.4 MCHC 33.8 RDW 13.4 Plt Count 126 L Sodium 130.2 L 129.0 L Potassium 4.7 4.7 Chloride 95 L 96 L Carbon Dioxide 23 19 L Anion Gap 12 14 BUN 12 12 Creatinine 0.83 0.82 Est GFR ( Amer) > 60 > 60 Glucose 174 H 153 H Calcium 8.7 8.1 L Impressions: Abdomen/Pelvis CT 02/14/20 07:30 IMPRESSION: 1. Acute pancreatitis. 2. Hepatic steatosis. 3. Diverticulosis. Chest X-Ray 02/15/20 07:00 IMPRESSION: Findings as detailed above likely represent a combination of small bilateral pleural effusions and atelectasis. Assessment and Plan - Diagnosis (1) Acute alcoholic pancreatitis Qualifiers: Acute pancreatitis complication: unspecified Qualified Code(s): K85.20 - Alcohol induced acute pancreatitis without necrosis or infection Is this a current diagnosis for this admission?: Yes Plan: Pain control with IV morphine Aggressive IV hydration Escalate diet to regular consistency low residue/low-fat/bland diet (2) Alcohol use disorder Is this a current diagnosis for this admission?: Yes Plan: Very heavy alcohol abuse. Drinks 1 pint a day of liquor. Last drink was on Thursday. Denies history of withdrawal seizure. Will monitor very closely for withdrawal with CIWA every 4 hours. IV Ativan will be administered as needed based on CIWA scores. Standing dose of Valium which will be down titrated to 2.5 mg twice a day. CIWA scores have been very low. (3) Sinus tachycardia Is this a current diagnosis for this admission?: Yes Plan: EKG reviewed. Likely secondary to inflammatory state with SIRS. If heart rate runs too high, will administer some Lopressor IV as needed. Continue treatment for pancreatitis with aggressive IV hydration. Has been having very good urine outputs. Currently no sign of or source of infection. Psychiatric consulted for management of anxiety. CIWA scores have been very low. (4) Hyperkalemia Is this a current diagnosis for this admission?: Yes Plan: Continue holding olmesartan. Hyperkalemia currently resolved. Did not require any Kayexalate yesterday. (5) Diabetes mellitus type 2 in nonobese Is this a current diagnosis for this admission?: Yes (6) Hypertension Qualifiers: Hypertension type: unspecified Qualified Code(s): I10 - Essential (primary) hypertension Is this a current diagnosis for this admission?: Yes (7) Hepatic steatosis Is this a current diagnosis for this admission?: Yes - Time Time Spent with patient: Less than 15 minutes Anticipated Discharge Disposition: Home, Self Care Anticipated Discharge Timeframe: within 72 hours
[2020-02-15] MEDS ORDERED: SODIUM CHLORIDE 1 GM TABLET PO ONE (17:45)
[2020-02-15] MEDS ORDERED: NORMAL SALINE 1000 ML 1,000 ML IV ONE (18:00)
[2020-02-15] MEDS: ACETAMINOPHEN 325 MG TABLET PO PRN (23:46)
[2020-02-16] MEDS: INSULIN LISPRO 100 UNIT/ML 3 ML VIAL SUBCUT SCH ×5 (05:50→22:39)
[2020-02-16 07:07] LABS: ALBUMIN 3.1 g/dL (3.5-5.0); ANION GAP 11 (5-19); BLOOD UREA NITROGEN 11 mg/dL (7-20); CALCIUM 8.1 mg/dL (8.4-10.2); CARBON DIOXIDE 23 mmol/L (22-30); CHLORIDE 97 mmol/L (98-107); GLUCOSE 172 mg/dL (75-110); PHOSPHORUS 2.3 mg/dL (2.5-4.5); POTASSIUM 3.9 mmol/L (3.6-5.0)
[2020-02-16] MEDS: METFORMIN HCL 500 MG TABLET PO SCH ×2 (08:26→17:31)
[2020-02-16 08:30] LABS: HEMATOCRIT 46.6 % (37.9-51.0); HEMOGLOBIN 15.9 g/dL (13.5-17.0); MEAN CORPUSCULAR HEMOGLOBIN 32.6 pg (27.0-33.4); MEAN CORPUSCULAR HGB CONC 34.2 g/dL (32.0-36.0); MEAN CORPUSCULAR VOLUME 95 fl (80-97); PLATELET COUNT 102 10^3/uL (150-450); RED BLOOD COUNT 4.88 10^6/uL (4.35-5.55); RED CELL DISTRIBUTION WIDTH 13.4 % (11.5-14.0); WHITE BLOOD COUNT 10.5 10^3/uL (4.0-10.5)
[2020-02-16] MEDS ORDERED: PROMETHAZINE HCL INJ 25 MG/1 ML VIAL IV PRN (08:30)
[2020-02-16 08:52] LABS: ALBUMIN 3.1 g/dL (3.5-5.0); ALKALINE PHOSPHATASE 75 U/L (38-126); ASPARTATE AMINO TRANSFERASE 19 U/L (17-59); BILIRUBIN,DIRECT 0.6 mg/dL (0.0-0.4); BILIRUBIN,TOTAL 2.1 mg/dL (0.2-1.3); TOTAL PROTEIN 5.6 g/dL (6.3-8.2)
[2020-02-16] MEDS ORDERED: PHOSPHORUS #1 250 MG TABLET PO ONE (09:00)
[2020-02-16] MEDS: ENOXAPARIN SODIUM INJ 40 MG/0.4 ML DISP.SYRIN SUBCUT SCH (09:01)
[2020-02-16] MEDS: DOCUSATE SODIUM 100 MG CAPSULE PO SCH ×2 (09:12→17:32)
[2020-02-16] MEDS: AMLODIPINE BESYLATE 5 MG TABLET PO SCH ×2 (09:12→21:40)
[2020-02-16] MEDS: DIAZEPAM 5 MG TABLET PO SCH ×2 (09:12→17:32)
[2020-02-16] MEDS: FAMOTIDINE INJ/PF 20 MG/2 ML SDV IV SCH ×2 (09:13→21:44)
[2020-02-16 10:44] LABS: APPEARANCE,URINE CLEAR; BILIRUBIN,URINE NEGATIVE (NEGATIVE); COLOR,URINE STRAW; GLUCOSE, URINE >=500 mg/dL (NEGATIVE); KETONES,URINE 20 mg/dL (NEGATIVE); LEUKOCYTE ESTERASE,URINE NEGATIVE (NEGATIVE); NITRITE,URINE NEGATIVE (NEGATIVE); PROTEIN,URINE NEGATIVE (NEGATIVE); URINE SPECIFIC GRAVITY 1.009; UROBILINOGEN,URINE NEGATIVE mg/dL (<2.0)
[2020-02-16] MEDS: NORMAL SALINE 1000 ML 1,000 ML IV PRN (12:28)
[2020-02-16] MEDS: ACETAMINOPHEN 325 MG TABLET PO PRN (12:48)
[2020-02-16] MEDS ORDERED: METOPROLOL TARTRATE PF/INJ 5 MG/5 ML SDV IV PRN (17:36)
--- NOTE | 2020-02-16 17:45 | PDOC PROGRESS REPORT ---
Subjective Progress Note for:: 02/16/20 Subjective:: Patient states that he feels a lot better and that his abdominal pain is pain much almost gone. He showed me his medical portal that shows that his heart rate typically is high at baseline but usually 100 to 115 bpm. Denies any cough or urinary symptoms. Denies any wounds. Denies tremors or hallucinations. Had bowel movement today. Reason For Visit: ACUTE ALCOHOLIC PANCRETITIS,UNCONTROLLED Physical Exam Vital Signs: Temp Pulse Resp BP Pulse Ox 99.4 F 116 H 18 160/98 H 95 02/16/20 10:00 02/15/20 23:50 02/15/20 23:50 02/15/20 23:50 02/15/20 23:50 Intake & Output 02/15/20 02/16/20 02/17/20 06:59 06:59 06:59 Intake Total 3845 4250 Output Total 1850 Balance 3845 2400 Weight 105.6 kg 101.5 kg General appearance: PRESENT: no acute distress, cooperative Neck exam: ABSENT: JVD Respiratory exam: PRESENT: clear to auscultation rachel, symmetrical, unlabored. ABSENT: tachypnea Cardiovascular exam: PRESENT: +S1, +S2, tachycardia. ABSENT: irregular rhythm GI/Abdominal exam: PRESENT: distended - Very mild distention, normal bowel sounds, soft, tenderness - Minimal tenderness. ABSENT: firm, guarding, hernia, rebound, rigid Extremities exam: ABSENT: pedal edema Neurological exam: PRESENT: alert, awake, oriented to person, oriented to place, oriented to time, oriented to situation, other - Non-tremulous Psychiatric exam: ABSENT: agitated, anxious Focused psych exam: ABSENT: internal stimuli, pressured speech, restlessness Skin exam: ABSENT: jaundice Results Laboratory Results: 02/16/20 08:12 02/16/20 06:28 02/16/20 02/16/20 02/16/20 06:28 06:28 08:12 WBC 10.5 RBC 4.88 Hgb 15.9 Hct 46.6 MCV 95 MCH 32.6 MCHC 34.2 RDW 13.4 Plt Count 102 L Sodium 131.0 L Potassium 3.9 Chloride 97 L Carbon Dioxide 23 Anion Gap 11 BUN 11 Creatinine 0.73 Est GFR ( Amer) > 60 Glucose 172 H Calcium 8.1 L Phosphorus 2.3 L Magnesium 2.3 Total Bilirubin 2.1 H AST 19 Alkaline Phosphatase 75 Total Protein 5.6 L Albumin 3.1 L 3.1 L Urine Color Urine Appearance Urine pH Ur Specific [place] Urine Protein Urine Glucose (UA) Urine Ketones Urine Blood Urine Nitrite Ur Leukocyte Esterase Urine WBC (Auto) Urine RBC (Auto) 02/16/20 10:15 WBC RBC Hgb Hct MCV MCH MCHC RDW Plt Count Sodium Potassium Chloride Carbon Dioxide Anion Gap BUN Creatinine Est GFR ( Amer) Glucose Calcium Phosphorus Magnesium Total Bilirubin AST Alkaline Phosphatase Total Protein Albumin Urine Color STRAW Urine Appearance CLEAR Urine pH 6.0 Ur Specific [place] 1.009 Urine Protein NEGATIVE Urine Glucose (UA) >=500 H Urine Ketones 20 H Urine Blood NEGATIVE Urine Nitrite NEGATIVE Ur Leukocyte Esterase NEGATIVE Urine WBC (Auto) 0 Urine RBC (Auto) 0 02/16/20 06:28 NT-Pro-B Natriuret Pep 108 Impressions: Abdomen/Pelvis CT 02/14/20 07:30 IMPRESSION: 1. Acute pancreatitis. 2. Hepatic steatosis. 3. Diverticulosis. Chest X-Ray 02/15/20 07:00 IMPRESSION: Findings as detailed above likely represent a combination of small bilateral pleural effusions and atelectasis. Assessment and Plan - Diagnosis (1) Acute alcoholic pancreatitis Qualifiers: Acute pancreatitis complication: unspecified Qualified Code(s): K85.20 - Alcohol induced acute pancreatitis without necrosis or infection Is this a current diagnosis for this admission?: Yes Plan: Pain control with IV morphine. However pain has improved significantly and he has not required any morphine today so far. We will discontinue IV fluids at this time and encourage p.o. hydration. Tolerating regular consistency low residue/low-fat/bland diet (2) SIRS (systemic inflammatory response syndrome) Is this a current diagnosis for this admission?: Yes Plan: Notable fever and tachycardia. Leukocytosis has resolved. Sirs is likely secondary to acute pancreatitis. Infectious work-up including chest x-ray, urinalysis, blood culture and skin survey have been negative for any infection. Hold off on antibiotics at this time. Monitor for fevers and vital signs. Tylenol as needed. (3) Alcohol use disorder Is this a current diagnosis for this admission?: Yes Plan: Very heavy alcohol abuse. Drinks 1 pint a day of liquor. Last drink was on Thursday. Currently not in withdrawal and likely getting out of the withdrawal window at this point. Continues to have very low CIWA scores. Discontinue standing doses of Valium. We will retain Ativan IV as needed for elevated CIWA scores. (4) Sinus tachycardia Is this a current diagnosis for this admission?: Yes Plan: He showed me his primary care portal which shows that his heart rates at baseline typically ranges at 100 to 115 bpm. However his tachycardia is worsened by inflammatory state with SIRS. Continue treatment for pancreatitis. Currently no sign of or source of infection. Psychiatric consulted for management of anxiety. CIWA scores have been very low. PRN lopressor (5) Hyperkalemia Is this a current diagnosis for this admission?: Yes Plan: Continue holding olmesartan. Hyperkalemia currently resolved. (6) Diabetes mellitus type 2 in nonobese Is this a current diagnosis for this admission?: Yes Plan: Continue metformin. Sliding scale insulin. Accu-Cheks (7) Hypertension Qualifiers: Hypertension type: unspecified Qualified Code(s): I10 - Essential (primary) hypertension Is this a current diagnosis for this admission?: Yes Plan: Holding ARB due to hyperkalemia. Substituted with amlodipine. (8) Hepatic steatosis Is this a current diagnosis for this admission?: Yes Plan: Likely secondary to alcoholic fatty liver disease. Either way he is on metformin given his diabetes which should help with fatty liver. Ultimately alcohol abstinence is the goal. (9) Anxiety disorder Is this a current diagnosis for this admission?: Yes Plan: Has history of anxiety and was on Lexapro before which he stopped 1 month ago because it made him feel "loopy". Currently does not appear anxious or agitated. Psychiatry has been consulted for medication recommendations. - Time Time Spent with patient: 15-24 minutes Anticipated Discharge Disposition: Home, Self Care Anticipated Discharge Timeframe: within 36 hours
--- NOTE | 2020-02-16 17:55 | PSYCHOLOGICAL NOTE ---
Psych Note - Psych Note Date seen by psych provider: 02/16/20 Psych Note: medication recommendations per [facility]'s contracted psychiatrist Dr Heather SPARKS are as follows: Effexor 37.5mg daily Buspar 5mg every evening for 7 days then take in mornings (to help reduce being effected by side effects ie nausea, dizziness etc.) Prazosin 1mg every evening at bedtime - while in [facility] Clonidine 0.1mg every evening can be subtatuded as Prazosin is not in the hosputal's formulary
[2020-02-16] MEDS ORDERED: CLONIDINE HCL 0.1 MG TABLET PO SCH (18:30)
[2020-02-16] MEDS ORDERED: BUSPIRONE HCL 10 MG TABLET PO SCH (19:30)
[2020-02-17 07:21] LABS: MEAN CORPUSCULAR HEMOGLOBIN 32.7 pg (27.0-33.4); MEAN CORPUSCULAR HGB CONC 34.2 g/dL (32.0-36.0); MEAN CORPUSCULAR VOLUME 96 fl (80-97); PLATELET COUNT 132 10^3/uL (150-450)
[2020-02-17 07:30] LABS: ALKALINE PHOSPHATASE 70 U/L (38-126); ANION GAP 12 (5-19); ASPARTATE AMINO TRANSFERASE 15 U/L (17-59); BILIRUBIN,DIRECT 0.5 mg/dL (0.0-0.4); BILIRUBIN,TOTAL 1.4 mg/dL (0.2-1.3); BLOOD UREA NITROGEN 12 mg/dL (7-20); CARBON DIOXIDE 22 mmol/L (22-30); CHLORIDE 100 mmol/L (98-107); GLUCOSE 152 mg/dL (75-110); POTASSIUM 3.8 mmol/L (3.6-5.0); TOTAL PROTEIN 5.8 g/dL (6.3-8.2)
[2020-02-17] MEDS: INSULIN LISPRO 100 UNIT/ML 3 ML VIAL SUBCUT SCH ×2 (08:03→11:38)
[2020-02-17] MEDS: METFORMIN HCL 500 MG TABLET PO SCH (08:08)
[2020-02-17] MEDS: ENOXAPARIN SODIUM INJ 40 MG/0.4 ML DISP.SYRIN SUBCUT SCH (09:41)
[2020-02-17] MEDS: DOCUSATE SODIUM 100 MG CAPSULE PO SCH (09:48)
[2020-02-17] MEDS: AMLODIPINE BESYLATE 5 MG TABLET PO SCH (09:50)
[2020-02-17] MEDS: FAMOTIDINE INJ/PF 20 MG/2 ML SDV IV SCH (09:51)
[2020-02-17] MEDS ORDERED: CARVEDILOL 6.25 MG TABLET PO SCH (10:00)
[2020-02-17] MEDS ORDERED: VENLAFAXINE HCL 37.5 MG CAP.SR.24H PO SCH (10:00)
[2020-02-17 13:14] VITALS: BP 149/90
--- NOTE | 2020-02-17 15:14 | PDOC DISCHARGE SUMMARY ---
Impression - Admit/DC Date/PCP Admission Date/Primary Care Provider: 02/13/20 19:53 ROMY KOROMA MD Discharge Date: 02/17/20 - Discharge Diagnosis (1) Acute alcoholic pancreatitis Is this a current diagnosis for this admission?: Yes (2) SIRS (systemic inflammatory response syndrome) Is this a current diagnosis for this admission?: Yes (3) Alcohol use disorder Is this a current diagnosis for this admission?: Yes (4) Sinus tachycardia Is this a current diagnosis for this admission?: Yes (5) Hyperkalemia Is this a current diagnosis for this admission?: Yes (6) Diabetes mellitus type 2 in nonobese Is this a current diagnosis for this admission?: Yes (7) Hypertension Is this a current diagnosis for this admission?: Yes (8) Hepatic steatosis Is this a current diagnosis for this admission?: Yes (9) Anxiety disorder Is this a current diagnosis for this admission?: Yes - Additional Information Resuscitation Status: Full Code Discharge Diet: Diabetic Discharge Activity: Activity As Tolerated Referrals: ROMY KOROMA MD [Primary Care Provider] - 02/21/20 2:30 pm (WITH SHARIF JAY) Prescriptions: Buspirone HCl 5 mg PO DAILY #30 tab Carvedilol [Coreg 6.25 mg Tablet] 6.25 mg PO Q12 #60 tablet Venlafaxine HCl ER [Effexor Xr 37.5 mg Cap.sr] 37.5 mg PO DAILY #30 cap.sr.24h Amlodipine Besylate [Norvasc 5 mg Tablet] 5 mg PO Q12 #60 tablet Prazosin HCl 1 mg PO QHS #30 capsule Home Medications: Canagliflozin [Invokana] 1 tab PO DAILY 02/14/20 Glipizide [Glipizide Xl] 5 mg PO DAILY 02/14/20 Meloxicam [Mobic 7.5 mg Tablet] 7.5 mg PO BID 02/14/20 Metformin HCl [Metformin HCl ER] 500 mg PO BID 02/14/20 Amlodipine Besylate [Norvasc 5 mg Tablet] 5 mg PO Q12 #60 tablet 02/17/20 Buspirone HCl 5 mg PO DAILY #30 tab 02/17/20 Carvedilol [Coreg 6.25 mg Tablet] 6.25 mg PO Q12 #60 tablet 02/17/20 Prazosin HCl 1 mg PO QHS #30 capsule 02/17/20 Venlafaxine HCl ER [Effexor Xr 37.5 mg Cap.sr] 37.5 mg PO DAILY #30 cap.sr.24h 02/17/20 History of Present Illiness History of Present Illness: According to admitting provider: ROMY ARMSTRONG is a 39 year old male who presented to the emergency room with a 1 day history of abdominal pain. He admits the sudden onset and gradual worsening of constant epigastric gripping abdominal pain with radiation through to his back over the course of the last 24 hours. His pain is now severe and is similar to pain he has had in the past with episodes of alcoholic pancreatitis. His pain has been accompanied by nausea with vomiting and anorexia. His pain has been associated with decreased urine output and intermittent chills without fever. He admits drinking 1 pint of hard liquor per day, for the last 9 months, up until 02/10/2020. He denies identification of any aggravating or ameliorating factors for his abdominal pain. In the emergency room he was found to have an elevated serum lipase, an elevated glucose and poorly controlled hypertension. He was treated in the emergency room with morphine, IV fluids and subsequently was admitted to the hospital for further evaluation and treatment. Hospital Course Hospital Course: Patient was admitted to the hospital for acute pancreatitis. Patient's pancreatitis flare was secondary to excessive alcohol consumption for the past several months. He states he has been doing the same response to his father passing away at the end of last year. He does have history of pancreatitis several years ago due to alcoholism as well but has been stable and was not having recurrent flares after abstaining from alcohol use. Here, lipase was elevated, abdominal pain was typical for pancreatitis, and CT of the abdomen/pelvis showed evidence of acute pancreatitis as well as hepatic steatosis and diverticulosis but no evidence of infection. Patient was treated with aggressive IV fluid hydration as well as pain meds initially with IV narcotics and later discontinued as patient was not requiring any more IV narcotics. His pain improved significantly and has resolved at the time of discharge. He was also able to tolerate diet which was gradually escalated has been able to tolerate regular consistency food. Is also having adequate bowel movements now. States he feels very well. Notably he did have SIRS while in the hospital with leukocytosis, fever and significant tachycardia in the 130s [baseline heart rate is usually 100 to 115 bpm as per his medical online portal which he showed me]. He was worked up thoroughly for any evidence of infection with chest x-ray, urinalysis, blood cultures, and abdominal/pelvis CT and thorough review of systems are all negative for any evidence of infection. I believe his SIRS is likely secondary to his acute pancreatitis. His leukocytosis later resolved. His heart rate improved back to his baseline. He has not been receiving any Lopressor IV but his heart rate has improved to low 100s to 110s now consistent with his baseline. Given that he presented with hyperkalemia and was notably on olmesartan, olmesartan was discontinued and has been substituted with amlodipine and Coreg for treatment of his hypertension. Coreg should also help with his chronic tachycardia. BNP was normal and he showed no evidence of heart failure. He was also seen by psychiatry for treatment of his anxiety disorder and alcohol cravings and was started on new medications. The psych team has given him referral for outpatient follow-up. Patient is doing well at the time of discharge and will be following up with his primary care provider. Physical Exam Vital Signs: Temp Pulse Resp BP Pulse Ox 99.2 F 100 20 149/90 H 95 02/17/20 13:11 02/17/20 13:11 02/17/20 13:11 02/17/20 13:11 02/17/20 13:11 Intake & Output 02/16/20 02/17/20 02/18/20 06:59 06:59 06:59 Intake Total 4250 2284 360 Output Total 1850 2200 Balance 2400 84 360 Weight 101.5 kg 100.8 kg General appearance: PRESENT: no acute distress, cooperative Neck exam: ABSENT: JVD Respiratory exam: PRESENT: unlabored Cardiovascular exam: PRESENT: +S1, +S2, tachycardia. ABSENT: irregular rhythm GI/Abdominal exam: PRESENT: soft. ABSENT: distended, rebound, rigid, tenderness Neurological exam: PRESENT: alert, awake Results Laboratory Results: WBC 8.0 10^3/uL (4.0-10.5) 02/17/20 05:55 RBC 4.60 10^6/uL (4.35-5.55) 02/17/20 05:55 Hgb 15.0 g/dL (13.5-17.0) 02/17/20 05:55 Hct 44.0 % (37.9-51.0) 02/17/20 05:55 MCV 96 fl (80-97) 02/17/20 05:55 MCH 32.7 pg (27.0-33.4) 02/17/20 05:55 MCHC 34.2 g/dL (32.0-36.0) 02/17/20 05:55 RDW 13.0 % (11.5-14.0) 02/17/20 05:55 Plt Count 132 10^3/uL (150-450) L 02/17/20 05:55 Lymph % (Auto) 5.4 % (13-45) L 02/13/20 17:22 [place] % (Auto) 8.2 % (3-13) 02/13/20 17:22 Eos % (Auto) 0.1 % (0-6) 02/13/20 17:22 Baso % (Auto) 0.2 % (0-2) 02/13/20 17:22 Absolute Neuts (auto) 8.8 10^3/uL (1.7-8.2) H 02/13/20 17:22 Absolute Lymphs (auto) 0.5 10^3/uL (0.5-4.7) 02/13/20 17:22 Absolute Monos (auto) 0.8 10^3/uL (0.1-1.4) 02/13/20 17:22 Absolute Eos (auto) 0.0 10^3/uL (0.0-0.6) 02/13/20 17:22 Absolute Basos (auto) 0.0 10^3/uL (0.0-0.2) 02/13/20 17:22 Seg Neutrophils % 86.1 % (42-78) H 02/13/20 17:22 PT 15.1 SEC (11.4-15.4) 02/15/20 09:07 INR 1.17 02/15/20 09:07 APTT 29.1 SEC (23.5-35.8) 02/15/20 09:07 Sodium 134.1 mmol/L (137-145) L 02/17/20 05:55 Potassium 3.8 mmol/L (3.6-5.0) 02/17/20 05:55 Chloride 100 mmol/L (98-107) 02/17/20 05:55 Carbon Dioxide 22 mmol/L (22-30) 02/17/20 05:55 Anion Gap 12 (5-19) 02/17/20 05:55 BUN 12 mg/dL (7-20) 02/17/20 05:55 Creatinine 0.72 mg/dL (0.52-1.25) 02/17/20 05:55 Est GFR ( Amer) > 60 (>60) 02/17/20 05:55 Est GFR (Non-Af Amer) Cancelled 02/14/20 16:00 Est GFR (MDRD) Non-Af > 60 (>60) 02/17/20 05:55 Glucose 152 mg/dL (75-110) H 02/17/20 05:55 POC Glucose 218 mg/dL (70-110) H 02/17/20 11:19 Hemoglobin A1c % 6.3 % (4.7-6.0) H 02/14/20 05:12 Calcium 8.0 mg/dL (8.4-10.2) L 02/17/20 05:55 Phosphorus 2.3 mg/dL (2.5-4.5) L 02/16/20 06:28 Magnesium 2.3 mg/dL (1.6-2.3) 02/16/20 06:28 Total Bilirubin 1.4 mg/dL (0.2-1.3) H 02/17/20 05:55 Direct Bilirubin 0.5 mg/dL (0.0-0.4) H 02/17/20 05:55 Neonat Total Bilirubin Not Reportable 02/17/20 05:55 Neonat Direct Bilirubin Not Reportable 02/17/20 05:55 Neonat Indirect Bili Not Reportable 02/17/20 05:55 AST 15 U/L (17-59) L 02/17/20 05:55 ALT 21 U/L (<50) 02/17/20 05:55 Alkaline Phosphatase 70 U/L (38-126) 02/17/20 05:55 NT-Pro-B Natriuret Pep 108 pg/mL (<125) 02/16/20 06:28 Total Protein 5.8 g/dL (6.3-8.2) L 02/17/20 05:55 Albumin 3.0 g/dL (3.5-5.0) L 02/17/20 05:55 Triglycerides 254 mg/dL (<150) H 02/14/20 05:12 Cholesterol 220.82 mg/dL (0-200) H 02/14/20 05:12 LDL Cholesterol Direct 144 mg/dL (<100) H 02/14/20 05:12 VLDL Cholesterol 50.8 mg/dL (10-31) H 02/14/20 05:12 HDL Cholesterol 47 mg/dL (>40) 02/14/20 05:12 Lipase 4365.8 U/L (23-300) H 02/13/20 17:22 EGFR Cancelled 02/14/20 16:00 TSH 0.95 uIU/mL (0.47-4.68) 02/14/20 05:12 Free T3 pg/mL 4.08 pg/mL (2.77-5.27) 02/14/20 05:12 Urine Color STRAW 02/16/20 10:15 Urine Appearance CLEAR 02/16/20 10:15 Urine pH 6.0 (5.0-9.0) 02/16/20 10:15 Ur Specific [place] 1.009 02/16/20 10:15 Urine Protein NEGATIVE mg/dL (NEGATIVE) 02/16/20 10:15 Urine Glucose (UA) >=500 mg/dL (NEGATIVE) H 02/16/20 10:15 Urine Ketones 20 mg/dL (NEGATIVE) H 02/16/20 10:15 Urine Blood NEGATIVE (NEGATIVE) 02/16/20 10:15 Urine Nitrite NEGATIVE (NEGATIVE) 02/16/20 10:15 Urine Bilirubin NEGATIVE (NEGATIVE) 02/16/20 10:15 Urine Urobilinogen NEGATIVE mg/dL (<2.0) 02/16/20 10:15 Ur Leukocyte Esterase NEGATIVE (NEGATIVE) 02/16/20 10:15 Urine WBC (Auto) 0 /HPF 02/16/20 10:15 Urine RBC (Auto) 0 /HPF 02/16/20 10:15 Urine Mucus (Auto) RARE /LPF 02/16/20 10:15 Urine Ascorbic Acid NEGATIVE (NEGATIVE) 02/16/20 10:15 02/16/20 06:28 NT-Pro-B Natriuret Pep 108 Impressions: Abdomen/Pelvis CT 02/14/20 07:30 IMPRESSION: 1. Acute pancreatitis. 2. Hepatic steatosis. 3. Diverticulosis. Chest X-Ray 02/15/20 07:00 IMPRESSION: Findings as detailed above likely represent a combination of small bilateral pleural effusions and atelectasis. Plan Time Spent: Less than 30 Minutes Stroke Is this a Stroke Patient?: No Acute Heart Failure Is this a Heart Failure Patient?: No
== END 2020-02-17 13:45 | disposition home or self-care (01) | DRG 439 ==
LOC: ER 15:29 → EH 19:53 → 4S 20:26
PROVIDERS: ADMIT Emergency Medicine; ATTEND Internal Medicine
DX: K85.20 Alcohol induced acute pancreatitis without necrosis or infection (principal); F10.232 Alcohol dependence with withdrawal with perceptual disturbance; I10 Essential (primary) hypertension; E11.9 Type 2 diabetes mellitus without complications; E87.5 Hyperkalemia; K76.0 Fatty (change of) liver, not elsewhere classified; K70.0 Alcoholic fatty liver; R00.0 Tachycardia, unspecified; F41.9 Anxiety disorder, unspecified; Y90.9 Presence of alcohol in blood, level not specified
CPT/HCPCS: 36415; 71046; 74176; 80048; 80053; 80061; 80076; 81001; 82040; 82962; 83036; 83690; 83735; 83880; 84100; 84443; 84481; 85025; 85027; 85610; 85730; 87040; 93005; 93010; 96361; 96374; 96375; 96376; 99285; J0360; J1644; J1815; J2060; J2270; J2405; J3360; J3490; J7030; J7120; S0028